=== PATIENT | female | born 1950 | race Asian ===

== ENCOUNTER 2019-03-04 19:28 | Emergency (ER) | payer MEDICARE, MEDICAID ==
[~2019-03-04] VITALS: Ht 162.6 cm; Wt 63.6 kg
[~2019-03-04 19:28] MED LIST: ALEN70TA3 PO; AMLO5TAB4 PO; CHOL100011 PO; IBUP-1223 PO; LOSA25TA25 PO; METO-99 PO
[2019-03-04 19:40] VITALS: BP 121/76
--- NOTE | 2019-03-04 19:45 | NUR ---
Pt ambulated to room with EDT.
--- NOTE | 2019-03-04 19:57 | NUR ---
Pt ambulated to bathroom, urine sample cup in hand.
--- NOTE | 2019-03-04 20:12 | NUR ---
Urine sample walked to lab.
[2019-03-04 20:26] LABS: MICROSCOPIC AUTO
[2019-03-04 20:42] LABS: CULTURE INDICATED? YES
== END 2019-03-04 21:21 | disposition home or self-care (01) ==
LOC: ED 21:20
DX: N39.0 Urinary tract infection, site not specified (principal)
CPT/HCPCS: 81001; 87077; 87086; 87186; 99283

== ENCOUNTER 2020-05-31 22:40 | Emergency (ER) | payer MEDICARE, MEDICAID ==
[~2020-05-31] VITALS: Ht 162.6 cm; Wt 61.9 kg
[2020-05-31 22:51] VITALS: BP 165/102
[2020-06-01 00:02] LABS: MICROSCOPIC AUTO
[2020-06-01] MEDS ORDERED: CEFDINIR 300 MG CAPSULE PO ONE (00:30)
[2020-06-01] MEDS ORDERED: CEFDINIR 300 MG CAPSULE ONE (00:33)
== END 2020-06-01 00:49 | disposition home or self-care (01) ==
LOC: ED 23:35
DX: N30.01 Acute cystitis with hematuria (principal); R30.0 Dysuria; I10 Essential (primary) hypertension; M19.90 Unspecified osteoarthritis, unspecified site; F17.200 Nicotine dependence, unspecified, uncomplicated
CPT/HCPCS: 81001; 99283